=== PATIENT | male | born 1950 | race Caucasian/White ===

== ENCOUNTER 2023-04-10 16:10 | Emergency (ER) | payer OTHER ==
[~2023-04-10] VITALS: Ht 170.2 cm; Wt 68.0 kg
[2023-04-10 16:17] VITALS: BP_SYST 151; PULSE 93; RESP 16; TEMP 96.7; O2SAT 98
[2023-04-10] MEDS ORDERED: SODIUM PHOSPHATE,MONO-DIBASIC 133 ML ENEMA RC ONE ×2 (17:30→20:00)
[2023-04-10] MEDS ORDERED: fentaNYL CITRATE/PF 100 MCG/2 ML AMP IM ONE (19:30)
[2023-04-10] MEDS ORDERED: KETOROLAC TROMETHAMINE 30 MG VIAL IM ONE (20:00)
[2023-04-10] MEDS ORDERED: POLY17PO4 PO (20:49)
[2023-04-10 21:12] VITALS: BP_SYST 120; PULSE 64; RESP 16; TEMP 98.1; O2SAT 99
== END 2023-04-10 21:12 | disposition home or self-care (01) ==
LOC: SED 16:10
DX: K56.41 Fecal impaction (principal); K62.89 Other specified diseases of anus and rectum; Z79.899 Other long term (current) drug therapy
CPT/HCPCS: 99284; 74018; 96372; J1885; J3010

== ENCOUNTER 2024-04-14 11:25 | Emergency (ER) | payer OTHER ==
[~2024-04-14] VITALS: Ht 170.2 cm; Wt 71.2 kg
[2024-04-14 11:25] VITALS: BP_SYST 129; PULSE 66; RESP 19; TEMP 98.1; O2SAT 98
[~2024-04-14 11:25] MED LIST: POLY17PO4 PO
[2024-04-14] MEDS ORDERED: iohexoL 350 mgI/mL, 100 ML INFUS..BTL IV ONE (12:12)
[2024-04-14] MEDS ORDERED: ASPIRIN 81 MG TAB.CHEW PO ONE (13:00)
[2024-04-14] MEDS ORDERED: CLOPIDOGREL BISULFATE 75 MG TABLET PO ONE (13:00)
[2024-04-14 13:03] LABS: BASOPHILS % (AUTO) 0.6 % (0.0-2.0); EOSINOPHILS # (AUTO) 0.1 K/uL (0.0-0.4); EOSINOPHILS % (AUTO) 1.4 % (0.0-4.0); HEMATOCRIT 40.9 % (36-54); HEMOGLOBIN 13.5 g/dL (14.0-18.0); LYMPHOCYTES # (AUTO) 1.1 K/uL (1.0-5.5); MEAN CORPUSCULAR HEMOGLOBIN 29 pg (27-31); MEAN CORPUSCULAR HGB CONC 33 % (32-36); MEAN CORPUSCULAR VOLUME 88 fL (79.0-98.0); MONOCYTES # (AUTO) 0.4 K/uL (0.0-1.0); MONOCYTES % (AUTO) 7.5 % (1.7-9.3); NEUTROPHILS # (AUTO) 3.3 K/uL (1.8-7.7); NEUTROPHILS % (AUTO) 68.5 % (40.0-70.0); PLATELET COUNT (AUTO) 175 K/uL (130-430); RED BLOOD CELL COUNT(AUTO) 4.67 MIL/uL (4.2-6.2); RED CELL DISTRIBUTION WIDTH 14.8 % (9.0-15.0); WHITE BLOOD COUNT (AUTO) 4.8 K/uL (4.8-10.8)
[2024-04-14 13:24] LABS: ALANINE AMINOTRANSFERASE 33 U/L (12-78); ALBUMIN 3.6 g/dL (3.4-4.8); ANION GAP 6 (5-15); ASPARTATE AMINOTRANSFERASE 34 U/L (10-37); BILIRUBIN,DIRECT 0.2 mg/dL (0.0-0.3); CARBON DIOXIDE 28 mmol/L (23-29); CHLORIDE 107 mmol/L (98-107); GLUCOSE 128 mg/dL (74-106); SODIUM SERUM 141 mmol/L (136-145); TOTAL BILIRUBIN 0.8 mg/dL (0.0-1.0); TOTAL PROTEIN, SERUM 6.4 g/dL (6.4-8.3); UREA NITROGEN, BLOOD 23 mg/dL (8-21)
[2024-04-14 17:33] VITALS: BP_SYST 167; PULSE 53; RESP 16; TEMP 98.2; O2SAT 100
== END 2024-04-14 16:04 | disposition short-term general hospital (02) ==
LOC: SED 11:25
DX: I63.89 Other cerebral infarction (principal); R47.81 Slurred speech; I51.7 Cardiomegaly; E11.9 Type 2 diabetes mellitus without complications; Z79.02 Long term (current) use of antithrombotics/antiplatelets; Z79.899 Other long term (current) drug therapy
CPT/HCPCS: 99291; 70496; 71045; 80076; 80048; 83880; 85025; 84484; 36415; 93005; 70498; 82948; 70450; Q9967